=== PATIENT | female | born 1980 | race Two or more races ===

== ENCOUNTER 2017-06-01 09:31 | Outpatient (CLI) | payer OTHER | END 2017-06-01 09:42 | disposition home or self-care (01) | LOC: RX STUDY 09:31 | DX: N93.0 Postcoital and contact bleeding (principal) ==

== ENCOUNTER → 2017-08-15 | Day surgery (SDC) | payer OTHER ==
[~2017-08-15] MED LIST: PERCOCET 5-3251 EACH PO
== END | disposition home or self-care (01) ==
LOC: ADM 08-12 07:30 → CIR.AMB 07:15
DX: N83.291 Other ovarian cyst, right side (principal)

== ENCOUNTER 2021-06-19 07:56 | Outpatient (CLI) | payer OTHER | END 2021-06-19 09:14 | disposition home or self-care (01) | LOC: PRENATAL 07:56 | PROVIDERS: ATTEND Obstetrics & Gynecology Maternal & Fetal Medicine | DX: O35.0XX0 Maternal care for (suspected) central nervous system malformation in fetus, not applicable or unspecified (principal); O35.3XX0 Maternal care for (suspected) damage to fetus from viral disease in mother, not applicable or unspecified; O09.529 Supervision of elderly multigravida, unspecified trimester; O10.019 Pre-existing essential hypertension complicating pregnancy, unspecified trimester; O34.219 Maternal care for unspecified type scar from previous cesarean delivery; O99.210 Obesity complicating pregnancy, unspecified trimester ==

== ENCOUNTER 2021-08-12 10:20 | Outpatient (CLI) | payer OTHER | END 2021-08-12 11:31 | disposition home or self-care (01) | LOC: PRENATAL 10:20 | PROVIDERS: ATTEND Obstetrics & Gynecology Maternal & Fetal Medicine | DX: O26.849 Uterine size-date discrepancy, unspecified trimester (principal); O34.219 Maternal care for unspecified type scar from previous cesarean delivery; O09.529 Supervision of elderly multigravida, unspecified trimester; O10.019 Pre-existing essential hypertension complicating pregnancy, unspecified trimester; O99.210 Obesity complicating pregnancy, unspecified trimester; Z3A.28 28 weeks gestation of pregnancy ==

== ENCOUNTER 2021-09-24 10:25 | Outpatient (CLI) | payer OTHER | END 2021-09-24 11:30 | disposition home or self-care (01) | LOC: PRENATAL 10:25 | PROVIDERS: ATTEND Obstetrics & Gynecology Maternal & Fetal Medicine | DX: O26.849 Uterine size-date discrepancy, unspecified trimester (principal); O09.529 Supervision of elderly multigravida, unspecified trimester; O10.019 Pre-existing essential hypertension complicating pregnancy, unspecified trimester; O34.219 Maternal care for unspecified type scar from previous cesarean delivery; O99.210 Obesity complicating pregnancy, unspecified trimester; O99.019 Anemia complicating pregnancy, unspecified trimester; Z3A.34 34 weeks gestation of pregnancy ==